=== PATIENT | male | born 1990 | race Caucasian/White ===

== ENCOUNTER 2016-10-17 20:26 | Emergency (ER) | payer OTHER ==
[~2016-10-17] VITALS: Ht 170.2 cm; Wt 70.2 kg
[~2016-10-17 20:26] MED LIST: DXY100 PO; METH20TA66 PO; RTL10 PO
[2016-10-17 20:32] VITALS: TEMP 37.6; Ht 170.2 cm; Wt 70.2 kg
[2016-10-17] MEDS ORDERED: SODIUM CHLORIDE 0.9% 1000ML 1,000 ML IV STA (21:36)
[2016-10-17] MEDS ORDERED: MoRPHine SULFATE 10 MG/ML CARP/VIAL IV STA (21:36)
[2016-10-17] MEDS ORDERED: ONDANSETRON INJ 2 MG/ML 2 ML VIAL IV STA (21:36)
[2016-10-17] MEDS ORDERED: OPTIRAY 320 IV PRN (21:45)
[2016-10-17 21:51] LABS: BASO % 0.2 %; BASO ABS # 0.02 K/uL (0-0.2); COMPLETE YES; EOS % 2.3 %; HEMATOCRIT 38.8 % (42-52); IG% 0.3 %; LYMPH % 13.3 %; LYMPH ABS # 1.53 K/uL (1.2-3.4); MEAN CELL VOLUME 86.2 fL (80-100); MEAN CORPUSCULAR HEMOGLOBIN 31.6 pg (25-34); MEAN CORPUSCULAR HGB CONC 36.6 g/dl (32-36); MEAN PLATELET VOLUME 10.3 fL (7.4-10.4); MONO % 9.1 %; NEUT % 74.8 %; PLATELET COUNT 137 K/uL (130-400); WHITE BLOOD COUNT 11.48 K/uL (4.8-10.8)
[2016-10-17 21:58] LABS: BUN/CREATININE RATIO 9.5 (10-20); CALCIUM 8.9 mg/dl (8.5-10.1); POTASSIUM 3.5 mmol/L (3.5-5.1)
[2016-10-17 22:01] LABS: ALB/GLOB RATIO 1.3 (0.9-2)
--- NOTE | 2016-10-17 22:43 | EMERGENCY ROOM VISIT NOTE ---
History First contact with patient: 21:27 Chief Complaint: ABDOMINAL PAIN Stated Complaint: LOWER LEFT ABD PAIN Nursing Triage Summary: Pt c/o 05/29 LLQ pain that began last night. Described as stabbing. Pt also had emesis x2 ealier today. History of Present Illness The patient is a 26 year old male who presents to the Emergency Room with complaints of left lower abdominal pain which began yesterday. The patient states he has had sharp, stabbing pain in his left lower abdomen since yesterday. He reports the pain has been intermittent. The pain was initially crampy, but is now stopping. He has had chills and states he has had fevers up to 100F. He has been taking Tylenol for his symptoms. He reports he has had multiple episodes of vomiting and had a few episodes of diarrhea yesterday. He denies any history of similar symptoms. He denies any history of abdominal surgery. The patient rates his discomfort a 10/10. He denies any chest pain, shortness of breath, blood in his vomit or stools, sore throat, headache or neck pain. He denies any recent antibiotic use. Review of Systems A complete 10-point Review of Systems was discussed with the patient, with pertinent positives and negatives listed in the History of Present Illness. All remaining Review of Systems questions can be considered negative unless otherwise specified. Past Medical/Surgical History Medical Problems: (1) Dental abscess (2) Dental infection (3) Laceration (4) Sepsis Family History Cancer Diabetes mellitus Gallbladder disease Heart disease Hypertension Kidney disease Kidney stones Lung disease Seizures Social History Smoking Status: Current Every Day Smoker Alcohol Use: occasionally Marital Status: single Housing Status: lives with family Occupation Status: employed Current/Historical Medications Scheduled Methylphenidate HCl (Methylphenidate HCl), 10 MG PO DAILY Methylphenidate HCl (Methylphenidate HCl), 20 MG PO QAM Ondasetron Odt (Zofran Odt), 4 MG SL Q6H Scheduled PRN Hydrocodone/Acetaminophen 5MG/325MG (Montrose 5MG/325MG), 1-2 TABLET PO Q4H PRN for Pain Allergies Coded Allergies: No Known Allergies (Unverified , 10/17/16) Physical Exam Vital Signs Date Time Temp Pulse Resp B/P Pulse Ox O2 Delivery O2 Flow Rate FiO2 10/18/16 00:46 81 20 118/57 97 10/17/16 23:50 94 18 110/59 96 Room Air 10/17/16 22:13 85 16 115/68 96 Room Air 10/17/16 20:32 37.6 88 16 124/75 100 Room Air Physical Exam VITALS: Vitals are noted on the nurse's note and reviewed by myself. Vital signs stable. GENERAL: This is a 26-year-old male, in no acute distress, nondiaphoretic, well- developed well-nourished. SKIN: Capillary reflex less than 2 seconds. HEENT: Normocephalic. PERRLA. EOMI. Nares patent. Mucous membranes moist. Neck is supple without nuchal rigidity. HEART: Regular rate and rhythm without murmurs gallops or rubs. LUNGS: Clear to auscultation bilaterally without wheezes, rales or rhonchi. ABDOMEN: Positive bowel sounds x 4. The abdomen is soft and nondistended. Mild tenderness of the left lower quadrant. No guarding or rebound tenderness. NEURO: Patient was alert and oriented to person place and time. Medical Decision & Procedures ER Provider Diagnostic Interpretation: CT ABD/PELVIS IV CONTRAST ONLY FINDINGS: Lower chest: The heart is normal in size and configuration, without pericardial effusion. The lung bases and pleural spaces are clear. Liver: The contrast-enhanced liver is normal in size, contour, and attenuation. There is no intrahepatic biliary ductal dilatation. The hepatic veins and portal veins are patent. Gallbladder: Unremarkable. Spleen: Normal in size and attenuation. Pancreas: Unremarkable. Adrenal glands: Unremarkable. Kidneys: No solid renal masses are visualized. There is mild fullness the right renal collecting system and ureter. No calculi are visualized. There is an equivocal high insertion of the right ureter. Bowel: There are no transition zones indicate bowel obstruction. There is no evidence of acute diverticulitis. There are no findings to indicate acute appendicitis. There is scattered fluid-filled small bowel loops. Peritoneum: There is no intraperitoneal free air or abdominal ascites. Vasculature: The abdominal aorta is normal in course and caliber. Adenopathy: None. Pelvic viscera: The bladder is distended Skeletal structures: No destructive osseous lesions are seen. IMPRESSION: 1. Fluid-filled small bowel loops, but no evidence of bowel obstruction 2. No CT evidence of acute appendicitis 3. No evidence of acute diverticulitis 4. Mild bladder distention.. Laboratory Results 10/17/16 21:07 Red Blood Count 4.50, Mean Corpuscular Volume 86.2, Mean Corpuscular Hemoglobin 31.6, Mean Corpuscular Hemoglobin Concent 36.6, Mean Platelet Volume 10.3, Neutrophils (%) (Auto) 74.8, Lymphocytes (%) (Auto) 13.3, Monocytes (%) (Auto) 9.1, Eosinophils (%) (Auto) 2.3, Basophils (%) (Auto) 0.2, Neutrophils # (Auto) 8.59, Lymphocytes # (Auto) 1.53, Monocytes # (Auto) 1.05, Eosinophils # (Auto) 0.26, Basophils # (Auto) 0.02 10/17/16 21:07 Test 10/17/16 21:07 10/18/16 00:20 White Blood Count 11.48 K/uL (4.8-10.8) Red Blood Count 4.50 M/uL (4.7-6.1) Hemoglobin 14.2 g/dL (14.0-18.0) Hematocrit 38.8 % (42-52) Mean Corpuscular Volume 86.2 fL (80-100) Mean Corpuscular Hemoglobin 31.6 pg (25-34) Mean Corpuscular Hemoglobin Concent 36.6 g/dl (32-36) Platelet Count 137 K/uL (130-400) Mean Platelet Volume 10.3 fL (7.4-10.4) Neutrophils (%) (Auto) 74.8 % Lymphocytes (%) (Auto) 13.3 % Monocytes (%) (Auto) 9.1 % Eosinophils (%) (Auto) 2.3 % Basophils (%) (Auto) 0.2 % Neutrophils # (Auto) 8.59 K/uL (1.4-6.5) Lymphocytes # (Auto) 1.53 K/uL (1.2-3.4) Monocytes # (Auto) 1.05 K/uL (0.11-0.59) Eosinophils # (Auto) 0.26 K/uL (0-0.5) Basophils # (Auto) 0.02 K/uL (0-0.2) RDW Standard Deviation 38.9 fL (36.4-46.3) RDW Coefficient of Variation 12.4 % (11.5-14.5) Immature Granulocyte % (Auto) 0.3 % Immature Granulocyte # (Auto) 0.03 K/uL (0.00-0.02) Anion Gap 9.0 mmol/L (3-11) Est Creatinine Clear Calc Drug Dose 104.7 ml/min Estimated GFR () 119.9 Estimated GFR (Non- 103.4 BUN/Creatinine Ratio 9.5 (10-20) Calcium Level 8.9 mg/dl (8.5-10.1) Total Bilirubin 1.0 mg/dl (0.2-1) Aspartate Amino Transf (AST/SGOT) 12 U/L (15-37) Alanine Aminotransferase (ALT/SGPT) 17 U/L (12-78) Alkaline Phosphatase 71 U/L (45-117) Total Protein 7.1 gm/dl (6.4-8.2) Albumin 4.0 gm/dl (3.4-5.0) Globulin 3.1 gm/dl (2.5-4.0) Albumin/Globulin Ratio 1.3 (0.9-2) Lipase 113 U/L (73-393) Urine Color YELLOW Urine Appearance CLEAR (CLEAR) Urine pH 5.5 (4.5-7.5) Urine Specific [place] > 1.045 (1.000-1.030) Urine Protein NEG (NEG) Urine Glucose (UA) NEG (NEG) Urine Ketones NEG (NEG) Urine Occult Blood NEG (NEG) Urine Nitrite NEG (NEG) Urine Bilirubin NEG (NEG) Urine Urobilinogen NEG (NEG) Urine Leukocyte Esterase NEG (NEG) Medications Administered Medications (Trade) Dose Ordered Sig/Kamilah Route Start Time Stop Time Status Last Admin Dose Admin Sodium Chloride (Nss 1000ml) 1,000 ml @ 999 mls/hr Q1H1M STAT IV 10/17/16 21:36 10/17/16 22:36 DC 10/17/16 22:12 999 MLS/HR Ondansetron HCl (Zofran Inj) 4 mg NOW STAT IV 10/17/16 21:36 10/17/16 21:38 DC 10/17/16 22:11 4 MG Morphine Sulfate (MoRPHine SULFATE INJ) 6 mg NOW STAT IV 10/17/16 21:36 10/17/16 21:38 DC 10/17/16 22:12 6 MG Ondansetron HCl (ZOFRAN ODT 4MG Home Pack) 1 homepack UD ONCE PO 10/17/16 23:30 10/17/16 23:31 DC 10/18/16 00:39 1 HOMEPACK Acetaminophen/ Hydrocodone Bitart (Montrose 5/325mg Home Pack) 1 homepack UD ONCE PO 10/17/16 23:30 2 23:31 DC 10/18/16 00:38 1 HOMEPACK Medical Decision Differential diagnosis includes gastroenteritis, colitis, cholecystitis, pancreatitis, small bowel obstruction, diverticulitis, among others. The patient was evaluated as above. Labs were drawn and IV access was obtained. Imaging studies were performed and read by radiology as above. The patient was medicated as above. The patient was reassessed multiple times during their stay in the emergency department and remained in stable condition. The patient is a 26-year-old male who presents today complaining of left lower quadrant abdominal pain. Labs revealed a mild leukocytosis consistent with vomiting or infection. No anemia or concerning electrolyte abnormalities. Urinalysis was not suggestive of infection. CT of the abdomen and pelvis was performed and showed no acute findings. The patient's symptoms are likely secondary to gastroenteritis. He was given a prescription for Zofran and Montrose for pain. He was instructed to follow-up with his primary care provider or return sooner for worsening or new/concerning symptoms. Based on the patient's presentation, lab results, and imaging studies, I feel the patient is stable for outpatient treatment. Discharge instructions were reviewed with the patient. The patient verbalized understanding of my assessment and treatment plan and was discharged home in good condition. [place] Drug Monitoring Program Search Results: patient reviewed within database, no issues identified Impression Primary Impression: Acute gastroenteritis Departure Information Dispostion Home / Self-Care Condition GOOD Prescriptions Hydrocodone/Acetaminophen 5MG/325MG (Montrose 5MG/325MG) Tab 1-2 TABLET PO Q4H Y for Pain, #10 TAB For Initial Treatment Prov: Tati Rossi PA-C 10/17/16 Ondasetron Odt (ZOFRAN ODT) 4 Mg Tab 4 MG SL Q6H for Nausea, #10 TAB Prov: Tati Rossi PA-C 10/17/16 Referrals No Doctor, Assigned (PCP) Patient Instructions My [facility] Additional Instructions You have been treated in the Emergency Department your Abdominal Pain. Laboratory results and imaging studies have ruled out any emergent causes for your abdominal pain which would warrant admission or surgery. You have been prescribed Montrose to be used for pain control. This is a narcotic medication. You cannot drive or consume alcohol while on this medicine. This medicine should only be used for pain that cannot be controlled with over-the- counter pain medicines. You have been prescribed Zofran to be used for any nausea or vomiting. Take as prescribed. For pain control, you can use the following [id number] medicines (if >12 yo): - Regular strength (325mg/tab) Tylenol (acetaminophen) 2 tabs every 4-6 hours as needed. Do not exceed 12 tablets in a 24 hour period. Avoid taking more than 4 grams (4000 mg) of Tylenol per day. This includes any other sources of acetaminophen you may take on a regular basis. - Regular strength (200 mg/tab) Advil (ibuprofen) 1-2 tabs every 4-6 hours as needed. Do not exceed a dose of 3200 mg per day. Drink plenty of water and stay well hydrated. As with any trip to the Emergency Department, you should follow-up with your Primary Care Provider from today's visit. Return to the emergency department if your symptoms persist despite treatment plan outlined above or if the following symptoms occur: increased fevers, chills , worsening nausea/vomiting, blood in your stool or urine.
--- NOTE | 2016-10-17 22:58 | DIAGNOSTIC IMAGING REPORT ---
CT ABD/PELVIS IV CONTRAST ONLY CLINICAL HISTORY: Left lower quadrant pain. Fever, vomiting. COMPARISON STUDY: 03/31/2016 TECHNIQUE: Following the IV administration of 115 mL of Optiray-320, CT scan of the abdomen and pelvis was performed from the lung bases to the proximal femurs. Images are reviewed in the axial, sagittal, and coronal planes. IV contrast was administered without complication. CT DOSE: 273.69 mGy.cm FINDINGS: Lower chest: The heart is normal in size and configuration, without pericardial effusion. The lung bases and pleural spaces are clear. Liver: The contrast-enhanced liver is normal in size, contour, and attenuation. There is no intrahepatic biliary ductal dilatation. The hepatic veins and portal veins are patent. Gallbladder: Unremarkable. Spleen: Normal in size and attenuation. Pancreas: Unremarkable. Adrenal glands: Unremarkable. Kidneys: No solid renal masses are visualized. There is mild fullness the right renal collecting system and ureter. No calculi are visualized. There is an equivocal high insertion of the right ureter. Bowel: There are no transition zones indicate bowel obstruction. There is no evidence of acute diverticulitis. There are no findings to indicate acute appendicitis. There is scattered fluid-filled small bowel loops. Peritoneum: There is no intraperitoneal free air or abdominal ascites. Vasculature: The abdominal aorta is normal in course and caliber. Adenopathy: None. Pelvic viscera: The bladder is distended Skeletal structures: No destructive osseous lesions are seen. IMPRESSION: 1. Fluid-filled small bowel loops, but no evidence of bowel obstruction 2. No CT evidence of acute appendicitis 3. No evidence of acute diverticulitis 4. Mild bladder distention.. Electronically signed by: Jonathon Carmichael M.D. 10/17/2016 10:57 PM Dictated Date/Time: 10/17/2016 10:50 PM
[2016-10-17] MEDS ORDERED: HYDR-5688 PO (23:26)
[2016-10-17] MEDS ORDERED: ONDA4TAB10 SL (23:26)
[2016-10-17] MEDS ORDERED: ONDANSETRON HOME PACK 4MG OD TAB PO ONE (23:30)
[2016-10-17] MEDS ORDERED: NORCO 5/325MG HOME PACK PO ONE (23:30)
[2016-10-18 00:40] LABS: URINE APPEARANCE CLEAR (CLEAR); URINE BILIRUBIN NEG (NEG); URINE COLOR YELLOW; URINE NITRITE NEG (NEG); URINE PH 5.5 (4.5-7.5); URINE SPECIFIC GRAVITY > 1.045 (1.000-1.030); UROBILINOGEN NEG (NEG); ZZUR CULT IF INDIC CLEAN CATCH NO
[2016-10-18 00:45] LABS: MANUAL MICROSCOPIC REQUIRED? NO; REVIEW REQ? NO
[2016-10-18 00:46] VITALS: BP 118/57; PULSE 81; O2SAT 97
== END 2016-10-18 00:48 | disposition home or self-care (01) ==
LOC: C.EDB 20:28
DX: K52.9 Noninfective gastroenteritis and colitis, unspecified (principal); Z83.3 Family history of diabetes mellitus; Z82.49 Family history of ischemic heart disease and other diseases of the circulatory system; Z82.0 Family history of epilepsy and other diseases of the nervous system; F17.210 Nicotine dependence, cigarettes, uncomplicated; Z79.899 Other long term (current) drug therapy

== ENCOUNTER 2017-07-16 19:32 | Emergency (ER) | payer OTHER ==
[~2017-07-16] VITALS: Ht 170.2 cm; Wt 75.7 kg
[~2017-07-16 19:32] MED LIST changes: -DXY100 PO
[2017-07-16 19:47] VITALS: TEMP 36.8; Ht 170.2 cm; Wt 75.7 kg
[2017-07-16] MEDS ORDERED: IBUPROFEN 800 MG TAB PO STA (20:34)
--- NOTE | 2017-07-16 21:08 | EMERGENCY ROOM VISIT NOTE ---
ED Visit Note First contact with patient: 20:26 CHIEF COMPLAINT: Knee injury HISTORY OF PRESENT ILLNESS: This 27-year-old male sent to the emergency department with complaint of right knee injury that occurred around 5 PM today. Patient states he was hunting today, stepped into a ground hog all and twisted his knee to the side, then fell onto the lateral side of the knee. He has been able to walk on the knee since the injury, but reports this is very painful. He took Tylenol shortly after the injury, which he states has not helped the pain. He states when he got home that he applied a heating pad to the knee, which seemed to make the pain worse. He denies any other associated injuries. REVIEW OF SYSTEMS: No weakness or numbness of the leg, no previous serious injuries or surgery to this knee. PMH: The patient is healthy; there is no significant medical or surgical history. SOCIAL HISTORY: Patient lives at home. PHYSICAL EXAM: Vital Signs: Reviewed Nurse's notes. MENTAL STATUS: Alert, oriented, and cooperative. KNEE: The right knee is tender and mildly swollen along the lateral aspect. There is no joint effusion. The range of motion is limited secondary to pain. There is no ligamentous instability. The skin is normal and intact. The patient walks with an antalgic gait. No pain with range of motion of the hip or ankle. IMAGING: R KNEE 3 VIEWS CLINICAL HISTORY: 27 years-old Male presenting with eval fx, dislocation. TECHNIQUE: Frontal, crosstable lateral, and sunrise views of the right knee were obtained. COMPARISON: Correlation made to plain radiographs of the left knee from 2006. FINDINGS: Knee joint congruent. No knee joint effusion. No acute fracture or malalignment is no degenerative change. Mild subcutaneous thickening and edema suggested in the prepatellar and infrapatellar regions. No patellar subluxation, although the lateral trochlear facet is somewhat shallow. IMPRESSION: No acute osseous injury of the right knee. EMERGENCY DEPARTMENT COURSE: I examined the patient. Differential diagnosis includes sprain/strain, contusion, fracture, dislocation, ligamentous injury, among others. X-ray of the knee does not show any fractures or fluid in the joint. Patient was placed in a knee immobilizer and provided with crutches, instructed to stay off leg as much as possible and to follow-up with orthopedics within the next week for further management. Problem List Medical Problems: (1) Dental abscess Status: Resolved (2) Dental infection Status: Resolved (3) Laceration Status: Resolved Current/Historical Medications Scheduled Methylphenidate HCl (Methylphenidate HCl), 10 MG PO DAILY Methylphenidate HCl (Methylphenidate HCl), 20 MG PO QAM Allergies Coded Allergies: No Known Allergies (Unverified , 07/16/17) Vital Signs Date Time Temp Pulse Resp B/P (MAP) Pulse Ox O2 Delivery O2 Flow Rate FiO2 07/16/17 22:16 94 18 132/80 97 07/16/17 19:47 36.8 92 18 139/58 97 Room Air Medications Administered Medications (Trade) Dose Ordered Sig/[place] Route Start Time Stop Time Status Last Admin Dose Admin Ibuprofen (Motrin Tab) 800 mg NOW STAT PO 07/16/17 20:34 07/16/17 20:36 DC 07/16/17 20:42 800 MG Departure Information Impression Primary Impression: Right knee sprain Dispostion Home / Self-Care Condition GOOD Referrals No Doctor, Assigned (PCP) Patient Instructions ED Sprain Knee, [facility] Additional Instructions Wear the knee immobilizer for the next week until your able to follow-up with your primary care provider or orthopedic surgeon. Use the crutches as needed to stay off of the leg entirely for the next day or 2, until your able to walk on the leg without pain wearing knee immobilizer. Ibuprofen, 600 mg every 6-8 hours and Tylenol 1000 mg every 8 hours as needed for pain. Apply ice to the knee for the next 2 days to help reduce swelling. Keep the knee elevated as much as possible to help reduce swelling. Follow-up with your primary care provider or the orthopedic surgeon within the next 5-7 days for reevaluation of your knee injury. Please return to the emergency Department for severe worsening pain, new numbness or tingling in the leg, discoloration of the leg, or if the leg or knee becomes very swollen, red, or hot to touch. Work Instructions Return To Work: 1 day Additional Work Instructions: Must wear the knee immobilizer brace until cleared by his primary care provider or the orthopedic surgeon. Problem Qualifiers Primary Impression: Right knee sprain Encounter type: initial encounter Involved ligament of knee: unspecified ligament Qualified Codes: S83.91XA - Sprain of unspecified site of right knee , initial encounter
--- NOTE | 2017-07-16 21:16 | DIAGNOSTIC IMAGING REPORT ---
R KNEE 3 VIEWS CLINICAL HISTORY: 27 years-old Male presenting with eval fx, dislocation. TECHNIQUE: Frontal, crosstable lateral, and sunrise views of the right knee were obtained. COMPARISON: Correlation made to plain radiographs of the left knee from 2006. FINDINGS: Knee joint congruent. No knee joint effusion. No acute fracture or malalignment is no degenerative change. Mild subcutaneous thickening and edema suggested in the prepatellar and infrapatellar regions. No patellar subluxation, although the lateral trochlear facet is somewhat shallow. IMPRESSION: No acute osseous injury of the right knee. Electronically signed by: Hal Blevins M.D. 07/16/2017 9:15 PM Dictated Date/Time: 07/16/2017 9:14 PM
[2017-07-16 22:16] VITALS: BP 132/80; PULSE 94; O2SAT 97
== END 2017-07-16 22:22 | disposition home or self-care (01) ==
LOC: C.EDB 19:33 → C.EDD 22:22
DX: S83.91XA Sprain of unspecified site of right knee, initial encounter (principal); W01.0XXA Fall on same level from slipping, tripping and stumbling without subsequent striking against object, initial encounter; Y93.89 Activity, other specified

== ENCOUNTER 2018-04-07 11:32 | Emergency (ER) | payer OTHER ==
[~2018-04-07] VITALS: Ht 167.6 cm; Wt 85.0 kg
[2018-04-07 11:34] VITALS: TEMP 37.1; Ht 167.6 cm; Wt 85.0 kg
[2018-04-07 12:37] LABS: BASO % 0.3 %; BASO ABS # 0.02 K/uL (0-0.2); EOS % 2.7 %; EOS ABS # 0.17 K/uL (0-0.5); HEMATOCRIT 42.5 % (42-52); HEMOGLOBIN 15.2 g/dL (14.0-18.0); IG# 0.01 K/uL (0.00-0.02); LYMPH % 30.1 %; LYMPH ABS # 1.87 K/uL (1.2-3.4); MEAN CELL VOLUME 85.7 fL (80-100); MEAN CORPUSCULAR HEMOGLOBIN 30.6 pg (25-34); MEAN CORPUSCULAR HGB CONC 35.8 g/dl (32-36); MONO % 9.6 %; NEUT % 57.1 %; NEUT ABS # 3.55 K/uL (1.4-6.5); PLATELET COUNT 166 K/uL (130-400); RED CELL DISTRIBUTION WIDTH CV 11.9 % (11.5-14.5); RED CELL DISTRIBUTION WIDTH SD 36.9 fL (36.4-46.3); WHITE BLOOD COUNT 6.22 K/uL (4.8-10.8)
[2018-04-07 13:05] LABS: CALCIUM 8.7 mg/dl (8.5-10.1); CREATININE 1.07 mg/dl (0.60-1.40); POTASSIUM 3.7 mmol/L (3.5-5.1); TOTAL PROTEIN 7.1 gm/dl (6.4-8.2)
[2018-04-07 13:44] VITALS: BP 123/64; PULSE 74; O2SAT 98
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
== END 2018-04-07 16:00 | disposition home or self-care (01) ==
LOC: EDBD 11:32 → C.EDA 12:34
DX: Z04.6 Encounter for general psychiatric examination, requested by authority (principal); R45.4 Irritability and anger; F41.9 Anxiety disorder, unspecified; F90.9 Attention-deficit hyperactivity disorder, unspecified type; F17.210 Nicotine dependence, cigarettes, uncomplicated; Z80.9 Family history of malignant neoplasm, unspecified; Z83.3 Family history of diabetes mellitus; Z83.79 Family history of other diseases of the digestive system; Z82.49 Family history of ischemic heart disease and other diseases of the circulatory system; Z84.1 Family history of disorders of kidney and ureter; Z83.6 Family history of other diseases of the respiratory system; Z82.0 Family history of epilepsy and other diseases of the nervous system; Z79.899 Other long term (current) drug therapy